=== PATIENT | female | born 1930 | race Caucasian/White ===

== ENCOUNTER 2017-01-05 09:54 | Inpatient (IN) | payer OTHER, BC ==
[~2017-01-05] VITALS: Ht 157.5 cm; Wt 59.0 kg
--- NOTE | ~2017-01-05 | O ---
[facility] [place] [address] OPERATIVE REPORT Name: DOMINIC ELLINGTON Room #: 537-P ADM IN M.R.#: [id number] Admission: 01/05/17 Attend Phys: Cristino Cox MD Discharge: Date of : [birth year] Report #: [id number] THIS REPORT FOR: //name// CC: Cristino Cox MD DATE OF SERVICE: 01/06/2017 PREOPERATIVE DIAGNOSIS: Right hip femoral neck fracture. POSTOPERATIVE DIAGNOSIS: Right hip femoral neck fracture. PROCEDURE: Right hip pinning. SURGEON: Mcihele Haile M.D. SENIOR SYSTEMS ADMINISTRATOR: Mina Chand, nurse practitioner. INDICATIONS FOR SENIOR SYSTEMS ADMINISTRATOR: During the course of operation, extensive manipulation and retraction was required. This was afforded to me by my special education educational assistant. ANESTHETIC: General. INDICATIONS: See hospital history and physical. DATE OF OPERATION: 01/06/2017. DESCRIPTION OF PROCEDURE: After adequate general anesthesia had been obtained, the patient was transferred to the fracture table. Hip was then prepped and draped in the usual meticulous sterile fashion. A small incision was made just distal to the trochanter laterally, subcutaneous divided sharply. Hemostasis obtained with electrocautery. IT band was divided. Vastus was split longitudinally. Drill guide was used to place three guide pins up into the femoral head, checked in 2 planes and was found to be in good position. We then placed long cannulated screws over the top of these pins. The entire construct was checked in 2 planes and found to be in good position. Wound was irrigated copiously. IT band was closed with interrupted [id number] #1 Vicryl, subcutaneous closed with 2-0 Monocryl, skin closed with gabrielle. Sterile compressive dressing was applied. By: 1600 194 Michele Haile MD /nt
--- NOTE | ~2017-01-05 | EKG ---
[address] [address] ELECTROCARDIOGRAM REPORT Name: DOMINIC ELLINGTON Room #: 537-P ADM IN M.R.#: [id number] Admission: 01/05/17 Attend Phys: Cristino Cox MD Discharge: Date of : [birth year] Report #: [id number] THIS REPORT FOR: //name// [facility] Test Date: 2017-01-05 Test Time: 14:45:56 Pat Name: DOMINIC ELLINGTON Department: Room: [facility] Gender: F Foreign Language Stenographer: Nader OLIVIER : 1930 Requested By: Luis Schmidt Order Number: [id number] MD: Feroz Hagen Measurements Intervals [place] Rate: 72 P: 60 [place]: 176 QRS: -9 QRSD: 93 T: 77 QT: 381 QTc: 417 Interpretive Statements Sinus rhythm Compared to ECG 08/01/2015 20:00:26 No significant changes Electronically Signed On 01-05-2017 21:21:13 CDT by Feroz Hagen [email or web address] <ELECTRONICALLY SIGNED> By: Feroz Hagen MD 01/05/17 212 1445 1445 Feroz Hagen MD /DORA
--- NOTE | ~2017-01-05 | HC ---
[facility] [place] [address] CONSULTATION Name: DOMINIC ELLINGTON Room #: 537-P ADM IN M.R.#: [id number] Admission: 01/05/17 Attend Phys: Cristino Cox MD Discharge: Date of : [birth year] Report #: [id number] THIS REPORT FOR: //name// CC: Cristino Cox DICTATED BY: Nadia GONCALVES DATE OF SERVICE: 01/05/2017 Currently, the patient is in room 537. REASON FOR CONSULTATION: Right hip pain and fracture status post fall. HISTORY OF PRESENT ILLNESS: The patient is an 86-year-old female, currently in bed with family at bedside. The patient had a fall at her assisted living facility and she was brought in by the ambulance to the Emergency Room. The patient fell this morning. Unable to obtain details from the fall as the patient is confused and disoriented and unable to recall. Family members were unable to give details as they were not present. The patient is complaining of back pain as well as shoulder pain and right leg pain. PAST MEDICAL HISTORY: Includes appendectomy, high cholesterol, TIA x 2 in 2008 and 2013, bilateral cataract surgery, colonoscopy, left humerus fracture, anxiety, weakness, pneumonia, COPD, osteoporosis. ALLERGIES: No known drug allergies. MEDICATIONS: Please see MAR. PERTINENT LABORATORY DATA: As follows: White blood cell count of 14.6, hemoglobin of 9.0, platelet count of 241, INR of 1.0, creatinine of 0.8. PERTINENT IMAGING: As follows: Lumbar spine CT demonstrated compression fracture of T12. Diffuse osteopenic changes without additional fractures. Right knee x-rays, 3 views, no abnormalities were seen. Pelvis CT reviewed by myself showed subcutaneous femoral neck fracture on the right side, slightly medial anterior offset of distal fracture fragment. No other pelvic fractures were seen. PHYSICAL EXAMINATION: Right lower extremity neurovascularly intact with +2 dorsal pedis, less than 3 cap refill. Pain with log roll. No pain to palpation of right ankle. Mild pain to palpation of right knee. Right lower extremity neurovascularly intact with skin dry and intact. No ecchymosis noted. No range of motion was able to be assessed due to fracture. Upper back also assessed with no ecchymosis noted. Tender to palpation when palpating the spine. Overall, the patient in a lot of pain and unable to cooperate with assessment. [address] [address] CONSULTATION Name: JORGE A ELLINGTONJORIE Jj Room #: 537-P [facility] IN M.R.#: [id number] Admission: 01/05/17 Attend Phys: Cristino Cox MD Discharge: Date of : [birth year] Report #: [id number] The patient currently on morphine. IMPRESSION: Right femoral neck fracture. PLAN: CT reviewed by Dr. Michele Haile who will be doing a right hip open reduction internal fixation tomorrow 01/06/2017 . This was discussed with the family. Risks and benefits of the surgery were discussed with the patient's family. Education in regards to her rehabilitation was also provided to the patient. Preop antibiotics were ordered. Consent was requested to nurse in order to get sanction from family members. The patient will be n.p.o. after midnight. All anticoagulants will be held today. We will follow the patient after surgery. Thank you for this consult. <ELECTRONICALLY SIGNED> By: Michele Haile MD 01/06/17 1510 2117 1238 Michele Haile MD /nt
--- NOTE | ~2017-01-05 | H ---
[facility] [place] [address] HISTORY AND PHYSICAL Name: DOMINIC ELLINGTON Jj Room #: 537-P ADM IN M.R.#: [id number] Admission: 01/05/17 Attend Phys: Cristino Cox MD Discharge: Date of : [birth year] Report #: [id number] THIS REPORT FOR: //name// CC: Cristino Cox DATE OF SERVICE: 01/06/2017 CHIEF COMPLAINT: Hip and back pain. HISTORY OF PRESENT ILLNESS: The patient is an 86-year-old female who had a fall in her home. The daughter reports this was witnessed by family members. She was trying to make her bed. She got her feet caught in the bed sheets and she fell to the ground. The patient is someone sedated due to pain meds, not able to give much history, although she is communicative. She apparently had a fall earlier about a week ago where she fell and hit her head, had some bruising on her left eye as well. PAST MEDICAL HISTORY: Significant for: 1. Prior left humerus fracture. 2. Prior TIA. 3. COPD. 4. Osteoporosis. 5. Prior right forearm fracture. 6. Prior right midfoot fracture. 7. Prior appendectomy. 8. Hyperlipidemia. 9. Cataracts. 10. TIA in 2008 and 2013. MEDICATIONS: Tramadol p.r.n. pain, Plavix 75 mg a day, Colace 100 mg daily and p.r.n., melatonin 3 mg at bedtime, milk of magnesia p.r.n., Naprosyn 220 b.i.d., Paxil 10 mg a day, Pravachol 40 mg a day, calcium, Tums daily, vitamin D 2000 units a day and aspirin 81 mg a day. ALLERGIES: No known drug allergies. SOCIAL HISTORY: She is a nonsmoker and nondrinker, no recreational drugs. She lives with family. REVIEW OF SYSTEMS: CONSTITUTIONAL: No fever or chills. HEENT: No headaches or visual changes. CHEST: No chest pain, tightness in chest, shortness of breath, cough or sputum production. GASTROINTESTINAL: No nausea, vomiting, diarrhea or constipation. GENITOURINARY: No burning or frequency. [facility] [address] [place] [address] HISTORY AND PHYSICAL Name: DOMINIC ELLINGTON Room #: 537-P [facility] IN .R.#: [id number] Admission: 01/05/17 Attend Phys: Cristino Cox MD Discharge: Date of : [birth year] Report #: [id number] EXTREMITIES: The pain as above. No swelling. SKIN: No rashes, there is bruising from the falls. PHYSICAL EXAMINATION: VITAL SIGNS: In the ER, blood pressure 151/57, pulse is 77, respiratory rate is 14 and she is afebrile. GENERAL: She is awake, but somewhat drowsy from the pain meds. She did respond to questions. Her daughter is present for the exam and history. HEENT: Her mucous membranes are moist. NECK: Supple without adenopathy, thyromegaly or bruits. CHEST: Clear to auscultation with no crackles or wheezes. CARDIOVASCULAR: Regular rhythm without murmur. ABDOMEN: Soft, not distended and nontender, no masses. Bowel sounds are active. EXTREMITIES: The right leg is externally rotated and foreshortened. She is tender over the right hip. Her pulses are intact. NEUROLOGIC: Sensory and motor are grossly intact. She has tenderness in her mid back. IMAGING: CT scan of the pelvis shows a femoral neck fracture on the right, there were no pelvic fractures. CT of the lumbar spine shows a T12 compression fracture. X-ray of the knee shows no fractures. ASSESSMENT: 1. Right femur fracture. 2. T12 compression fracture. PLAN: 1. The patient has been kept n.p.o. for a possible surgery today. Ortho will see for that. 2. For the compression fracture, we will consult IR for possible vertebroplasty after the hip procedure. Resume her home meds except the Plavix as above. <ELECTRONICALLY SIGNED> By: Cristino Cox MD 01/08/17 0714 0623 07 Cristino Cox MD /nt
--- NOTE | ~2017-01-05 | HC ---
[facility] [place] [address] CONSULTATION Name: DOMINIC ELLINGTON Jj Room #: 537-P ADM IN M.R.#: [id number] Admission: 01/05/17 Attend Phys: Cristino Cox MD Discharge: Date of : [birth year] Report #: [id number] THIS REPORT FOR: //name// CC: Cristino Cox HISTORY OF PRESENT ILLNESS: The patient is an 86-year-old white female who had a fall at her assisted living facility. She complained of right hip fracture and low back pain. She was noted to have a right hip femoral neck fracture as well as a T12 compression fracture. She underwent right hip pinning on 01/06/2017. She then underwent a T12 kyphoplasty on 01/19/2017. 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 She has had some worsening swelling of that right upper extremity and there is a concern as to whether she may have had another CVA. MRI was being considered and apparently has been improved by the family to go ahead to further evaluate this. CT of the head was negative. We are seeing her in rehabilitation medicine consultation. PAST MEDICAL HISTORY: Includes osteoporosis, she has a history of multiple other fractures, prior left humerus fracture, COPD, right forearm fracture, right midfoot fracture, prior appendectomy, hyperlipidemia, cataracts. She is noted to have a TIA in April in 2013, although the daughter tells me that she has had some residual right upper extremity weakness since that time. MEDICATIONS: Please see the full medication listing. ALLERGIES: No known drug allergies. SOCIAL HISTORY: She lives in an assisted living facility. Closely involved daughter. ALLERGIES: No known drug allergies. REVIEW OF SYSTEMS: Did not offer any current complaints of chest pain, shortness of breath or abdominal discomfort. Daughter notes that the patient has had some mild dementia. This had just been more recently noted. It has been significantly worse year in the hospital. PHYSICAL EXAMINATION: GENERAL: She is an 86-year-old white female in no obvious distress. She has nasal prong O2. VITAL SIGNS: Temperature 98.8, pulse 94, respirations 18, blood pressure 168/69. NEUROLOGIC: She is alert, confused, could not tell me the name of the place, will follow basic 1 step commands somewhat inconsistently. Facies appeared symmetric. EXTREMITIES: She has functional range of motion of the left upper and left lower extremity. Right upper extremity reveal as 1-2+ pitting edema. Her [facility] [address] [place] [address] CONSULTATION Name: DOMINIC ELLINGTON Room #: 537-P [facility] IN [facility].#: [id number] Admission: 01/05/17 Attend Phys: Cristino Cox MD Discharge: Date of : [birth year] Report #: [id number] strength is grade a 3+ to 4-/5. In right lower extremity, her hip is dressed. There is no focal calf swelling. Tone appeared to be reasonably intact. I had some difficulty getting her to follow commands to do volitional testing. She has been max assist for sit to stand. Nonweightbearing on that right lower extremity. ASSESSMENT: An 86-year-old white female with the following problem list: 1. Right femoral neck fracture, status post pinning January 06, she is nonweightbearing. 2. T12 compression fracture status post kyphoplasty 01/09/2017. 3. Right upper extremity weakness/paresis with a prior history of transient ischemic attack/cerebrovascular accident. Further workup is underway including an MRI of the brain per discussion. PLAN: The patient has limited tolerance. She has been nonweightbearing of that right lower extremity and is at a low functional level. At this point, I doubt that she would meet criteria for an acute [address] [place] [address] inpatient rehabilitation stay, but I indicated to the daughter we would continue to follow and see how she does. We will see what the MRI shows and see how she continues to do in therapies and follow from there. By: 1149 2122 Bam Mayberry MD /nt
[~2017-01-05 09:54] MED LIST: ACETAMINOPHEN-1 EAC1 PO; ADULT LOW DOSE81 MG PO; ALEVE220 MG PO; ASPIR 8181 MG PO; ASPIRIN81 M2 PO; CARBIDOPA-LEVO1 EAC9 PO; CEFDINIR300 MG; CEFTIN 250 MG250 MG PO; COLACE100 MG PO; COUMADIN 4 MG TA4 M1 PO; DULCOLAX10 MG RC; EVISTA PO; HYDROCODONE-AP1 EAC6 PO; LISINOPRIL10 MG PO; MELATONIN3 MG PO; MILK OF MA2400 MG/10 PO; NON-ASPIRIN EX500 M1 PO; PAXIL10 MG PO; PLAVIX 75 MG TA75 M1 PO; PRAVACHOL40 MG PO; SENNA LAXATIVE1 EACH PO; TUMS PO; TYLENOL325 MG PO; ULTRAM 50MG TAB50 MG PO; VITAMIN D2000 UNIT PO
[2017-01-05 09:55] VITALS: BP 151/57
[2017-01-05 13:08] VITALS: BP 151/70
[2017-01-05 13:44] LABS: HEMATOCRIT 28.8 % (37.0-47.0); MCH 23.4 pg (26.0-34.0); MCHC 31.3 g/dL (28.0-37.0); MCV 74.8 fL (80.0-100.0); PLATELET COUNT 241 thou/uL (150-400); RBC 3.85 mil/uL (4.20-5.00); RDW 16.2 % (10.5-14.5); WBC 14.6 thou/uL (4.0-11.0)
[2017-01-05 13:45] LABS: MANUAL DIFF YES
[2017-01-05 13:56] LABS: PROTIME 10.8 Seconds (9.3-11.4)
[2017-01-05 13:58] LABS: CALCIUM 9.6 mg/dL (8.5-10.1); CREATININE 0.8 mg/dL (0.6-1.0); POTASSIUM 3.8 mmol/L (3.5-5.1)
[2017-01-05 14:03] LABS: ALBUMIN 3.1 g/dL (3.4-5.0); TOTAL BILIRUBIN 0.3 mg/dL (<0.1-1.0); TOTAL PROTEIN 6.3 g/dL (6.4-8.2)
[2017-01-05 14:15] VITALS: BP 145/51; BP 155/55
[2017-01-05 14:15] LABS: ABSOLUTE NEUTROPHILS 12.7 thou/uL (1.4-8.2); ANISOCYTOSIS 1+; HYPOCHROMASIA 1+; TOTAL CELL COUNT 100
[2017-01-05 15:19] VITALS: BP 153/55
[2017-01-05 20:55] VITALS: BP 146/48
[2017-01-06 04:37] VITALS: BP 145/91
[2017-01-06 07:26] VITALS: BP 125/50
[2017-01-06 08:00] VITALS: BP 125/50
[2017-01-06 13:30] VITALS: BP 125/74
[2017-01-06 18:18] VITALS: BP 111/86
[2017-01-06 18:36] LABS: HEMATOCRIT 29.5 % (37.0-47.0); HEMOGLOBIN 8.7 gm/dL (12.0-15.0); MCH 23.3 pg (26.0-34.0); MCHC 29.6 g/dL (28.0-37.0); MCV 78.5 fL (80.0-100.0); RBC 3.75 mil/uL (4.20-5.00); RDW 16.5 % (10.5-14.5); WBC 12.9 thou/uL (4.0-11.0)
[2017-01-06 19:57] VITALS: BP 111/44
[2017-01-07 01:46] VITALS: BP 112/66
[2017-01-07 04:15] VITALS: BP 120/53
[2017-01-07 05:02] LABS: HEMATOCRIT 23.8 % (37.0-47.0); HEMOGLOBIN 7.4 gm/dL (12.0-15.0); MCH 23.7 pg (26.0-34.0); MCHC 31.1 g/dL (28.0-37.0); MCV 76.3 fL (80.0-100.0); RBC 3.13 mil/uL (4.20-5.00); RDW 16.3 % (10.5-14.5); WBC 8.5 thou/uL (4.0-11.0)
[2017-01-07 07:40] VITALS: BP 135/52
[2017-01-07 08:35] LABS: CALCIUM 8.8 mg/dL (8.5-10.1); CREATININE 0.8 mg/dL (0.6-1.0); POTASSIUM 4.2 mmol/L (3.5-5.1)
[2017-01-07 15:25] VITALS: BP 146/58
[2017-01-07 19:21] VITALS: BP 140/47
[2017-01-07 20:00] VITALS: BP 140/47
[2017-01-08 06:19] VITALS: BP 127/62
[2017-01-08 08:11] LABS: HEMATOCRIT 23.7 % (37.0-47.0); HEMOGLOBIN 7.4 gm/dL (12.0-15.0); MCH 23.6 pg (26.0-34.0); MCHC 31.3 g/dL (28.0-37.0); MCV 75.3 fL (80.0-100.0); RBC 3.14 mil/uL (4.20-5.00); RDW 15.9 % (10.5-14.5); WBC 9.2 thou/uL (4.0-11.0)
[2017-01-08 08:26] VITALS: BP 111/41
[2017-01-08 15:58] VITALS: BP 143/55
[2017-01-08 19:23] VITALS: BP 108/48
[2017-01-09] VITALS (13 sets, daily range): BP systolic 111–154; BP diastolic 41–92
[2017-01-10 03:08] VITALS: BP 145/60
[2017-01-10 07:30] VITALS: BP 105/86
[2017-01-10 14:27] LABS: HEMATOCRIT 22.5 % (37.0-47.0); HEMOGLOBIN 7.2 gm/dL (12.0-15.0); MCH 23.5 pg (26.0-34.0); MCHC 31.9 g/dL (28.0-37.0); MCV 73.8 fL (80.0-100.0); RBC 3.05 mil/uL (4.20-5.00); RDW 16.6 % (10.5-14.5); WBC 7.7 thou/uL (4.0-11.0)
[2017-01-10 14:46] LABS: CALCIUM 8.9 mg/dL (8.5-10.1); CREATININE 0.6 mg/dL (0.6-1.0); POTASSIUM 3.2 mmol/L (3.5-5.1)
[2017-01-10 15:40] VITALS: BP 148/53
[2017-01-10 20:47] VITALS: BP 124/51
[2017-01-11 06:20] VITALS: BP 137/54
[2017-01-11 08:00] VITALS: BP 142/39
[2017-01-11 12:39] VITALS: BP 153/60
[2017-01-11 18:13] VITALS: BP 171/78
[2017-01-11 21:22] VITALS: BP 178/74
[2017-01-12 05:37] VITALS: BP 178/68
[2017-01-12 07:55] VITALS: BP 168/69
[2017-01-12 12:20] VITALS: BP 156/61
[2017-01-12 17:15] VITALS: BP 162/73
[2017-01-12 20:00] VITALS: BP 187/78
[2017-01-12 22:00] VITALS: BP 167/64
[2017-01-13 04:00] VITALS: BP 133/62
[2017-01-13] MEDS ORDERED: HYDROCODONE-APA1 TA1 PO (06:57)
[2017-01-13 08:51] VITALS: BP 152/62
== END 2017-01-13 18:00 | DRG 480 ==
LOC: ER 09:54 → EROBS 12:06 → 5S 12:06
PROVIDERS: Family Medicine; Internal Medicine; Orthopaedic Surgery; Physician Assistant
PROC: 0PU43JZ Supplement Thoracic Vertebra with Synthetic Substitute, Percutaneous Approach (ICD-10-PCS; principal; 2017-01-09)
PROC: 0QH634Z Insertion of Internal Fixation Device into Right Upper Femur, Percutaneous Approach (ICD-10-PCS; principal; 2017-01-09)
PROC: 0PS43ZZ Reposition Thoracic Vertebra, Percutaneous Approach (ICD-10-PCS; principal; 2017-01-09)
DX: S72.001A Fracture of unspecified part of neck of right femur, initial encounter for closed fracture (principal); J96.00 Acute respiratory failure, unspecified whether with hypoxia or hypercapnia; I63.9 Cerebral infarction, unspecified; S22.089A Unspecified fracture of T11-T12 vertebra, initial encounter for closed fracture; G81.91 Hemiplegia, unspecified affecting right dominant side; E78.00 Pure hypercholesterolemia, unspecified; F41.9 Anxiety disorder, unspecified; J44.9 Chronic obstructive pulmonary disease, unspecified; M81.0 Age-related osteoporosis without current pathological fracture; E78.5 Hyperlipidemia, unspecified; W18.39XA Other fall on same level, initial encounter; D72.829 Elevated white blood cell count, unspecified; K59.00 Constipation, unspecified; I10 Essential (primary) hypertension; M19.90 Unspecified osteoarthritis, unspecified site; F32.9 Major depressive disorder, single episode, unspecified; Y93.89 Activity, other specified; Y92.098 Other place in other non-institutional residence as the place of occurrence of the external cause; Z87.01 Personal history of pneumonia (recurrent); Z79.899 Other long term (current) drug therapy; Z98.42 Cataract extraction status, left eye; Z98.41 Cataract extraction status, right eye; Z87.81 Personal history of (healed) traumatic fracture; Z90.49 Acquired absence of other specified parts of digestive tract; Y99.8 Other external cause status
CPT/HCPCS: 10089; 50010; 50101; 50386; 51412; 51538; 53400; 56525; 57092; 62110; 62900; 70005

== ENCOUNTER 2018-01-17 17:06 | Inpatient (IN) | payer OTHER, BC ==
[~2018-01-17] VITALS: Ht 157.5 cm; Wt 52.2 kg
--- NOTE | ~2018-01-17 | EKG ---
[address] [address] ELECTROCARDIOGRAM REPORT Name: DOMINIC ELLINGTON Room #: 429-P [facility] IN .R.#: [id number] Admission: 01/17/18 Attend Phys: Cristino Cox MD Discharge: Date of : [birth year] Report #: [id number] THIS REPORT FOR: //name// [facility] ED Test Date: 2018-01-17 Test Time: 17:13:56 Pat Name: DOMINIC LINKTULIOROSANNA Department: Room: Gender: F Aircraft Part Assembler: [facility] : 1930 Requested By: Luis Schmidt Order Number: [id number] MD: Feroz Hagen Measurements Intervals [place] Rate: 87 P: 40 [place]: 185 QRS: -19 QRSD: 99 T: 72 QT: 370 QTc: 445 Interpretive Statements Sinus rhythm Probable left ventricular hypertrophy Compared to ECG 01/05/2017 14:45:56 No significant changes Electronically Signed On 01-18-2018 8:00:27 CDT by Feroz Hagen [email or web address] <ELECTRONICALLY SIGNED> By: Feroz Hagen MD 01/18/1800 12 12 Feroz Hagen MD /[facility]
[~2018-01-17 17:06] MED LIST changes: +HYDROCODONE-APA1 TA1 PO
[2018-01-17 17:08] VITALS: BP 129/73
[2018-01-17 17:37] LABS: HEMOGLOBIN 11.9 gm/dL (12.0-15.0); MCH 29.8 pg (26.0-34.0); MCHC 33.1 g/dL (28.0-37.0); MCV 89.9 fL (80.0-100.0); PLATELET COUNT 198 thou/uL (150-400); RDW 13.1 % (10.5-14.5); WBC 16.3 thou/uL (4.0-11.0)
[2018-01-17 17:46] LABS: ANION GAP 12 mmol/L (7-16); BUN 23 mg/dL (7-18); CALCIUM 9.5 mg/dL (8.5-10.1); CHLORIDE 104 mmol/L (98-107); CO2 21 mmol/L (21-32); CREATININE 0.9 mg/dL (0.6-1.0); GLUCOSE 125 mg/dL (74-106); POTASSIUM 4.1 mmol/L (3.5-5.1); SODIUM 137 mmol/L (136-145)
[2018-01-17 18:03] LABS: ALBUMIN 3.1 g/dL (3.4-5.0); SGOT 23 U/L (15-37); SGPT 15 U/L (30-65); TOTAL BILIRUBIN 0.6 mg/dL (<0.1-1.0); TOTAL PROTEIN 6.7 g/dL (6.4-8.2); TROPONIN-I < 0.04 ng/mL (<0.06)
[2018-01-17 18:07] LABS: PROTIME 10.3 Seconds (9.3-11.4)
[2018-01-17 18:10] LABS: ABSOLUTE NEUTROPHILS 15.2 thou/uL (1.4-8.2)
[2018-01-17 18:11] LABS: ANISOCYTOSIS 1+
[2018-01-17 18:22] LABS: URINE BILIRUBIN NEGATIVE (Negative); URINE BLOOD 2+ (Negative); URINE CLARITY CLEAR; URINE COLOR YELLOW; URINE GLUCOSE-RANDOM* NEGATIVE (Negative); URINE KETONES 1+ (Negative); URINE NITRITE-REFLEX NEGATIVE (Negative); URINE PROTEIN (DIPSTICK) NEGATIVE (Negative); URINE SPECIFIC GRAVITY <= 1.005 (1.005-1.035); URINE UROBILINOGEN 0.2 E.U./dl (0.2-1.0)
[2018-01-17 18:26] LABS: URINE LEUKOCYTES-REFLEX 1+ (Negative)
[2018-01-17 18:29] LABS: BACTERIA-REFLEX 1-9 Few /HPF (None Seen); CASTS None Seen /LPF (None Seen); CRYSTALS None Seen /LPF (None Seen); SQUAMOUS 4-10 Moderate /LPF (0-3); URINE RBC 0-2 Rare /HPF (0-2); URINE WBC-REFLEX 6-15 Few /HPF (0-5)
[2018-01-17 20:00] VITALS: BP 143/47
[2018-01-17 20:18] VITALS: BP 147/52
[2018-01-17] MEDS ORDERED: TYLENOL325 MG PO (21:29)
[2018-01-17] MEDS ORDERED: LOPERAMIDE 2 MG2 M1 PO (21:31)
[2018-01-17] MEDS ORDERED: MIRALAX17 GM PO (21:34)
[2018-01-17] MEDS ORDERED: MOBIC7.5 MG PO (21:36)
[2018-01-17] MEDS ORDERED: REMERON15 MG PO (21:38)
[2018-01-17] MEDS ORDERED: VITAMIN D1000 UNI1 PO (21:41)
[2018-01-18 04:33] VITALS: BP 129/52
[2018-01-18 07:52] VITALS: BP 115/45
[2018-01-18 17:37] VITALS: BP 119/57
[2018-01-18 20:30] VITALS: BP 111/59
[2018-01-19 07:00] VITALS: BP 124/54
[2018-01-19 08:47] VITALS: BP 125/60
[2018-01-19 15:05] VITALS: BP 117/53
[2018-01-19 20:10] VITALS: BP 149/53
[2018-01-20 04:57] VITALS: BP 141/55
[2018-01-20 07:30] VITALS: BP 142/71
[2018-01-20 19:49] VITALS: BP 134/65
[2018-01-21 05:00] VITALS: BP 136/82
[2018-01-21 07:30] VITALS: BP 158/63
[2018-01-21] MEDS ORDERED: CEFDINIR300 MG PO (07:53)
[2018-01-21] MEDS ORDERED: AZITHROMYCIN 2250 MG PO (07:53)
== END 2018-01-21 17:36 | DRG 682 ==
LOC: ER 17:06 → EROBS 19:08 → 4E 19:08
PROVIDERS: Physician Assistant
DX: N17.9 Acute kidney failure, unspecified (principal); J18.9 Pneumonia, unspecified organism; N39.0 Urinary tract infection, site not specified; E44.0 Moderate protein-calorie malnutrition; E78.00 Pure hypercholesterolemia, unspecified; F41.9 Anxiety disorder, unspecified; J44.9 Chronic obstructive pulmonary disease, unspecified; M81.0 Age-related osteoporosis without current pathological fracture; I10 Essential (primary) hypertension; Z79.82 Long term (current) use of aspirin; Z79.899 Other long term (current) drug therapy; Z90.49 Acquired absence of other specified parts of digestive tract; Z86.73 Personal history of transient ischemic attack (TIA), and cerebral infarction without residual deficits; Z98.42 Cataract extraction status, left eye; Z98.41 Cataract extraction status, right eye; Z68.21 Body mass index [BMI] 21.0-21.9, adult
CPT/HCPCS: 10183